=== PATIENT | male | born 1980 | race Caucasian/White ===

== ENCOUNTER 2016-09-05 11:56 | Emergency (ER) | payer MEDICAID, OTHER ==
[~2016-09-05] VITALS: Ht 175.3 cm; Wt 80.0 kg
[~2016-09-05 11:56] MED LIST: ARIP5TAB9 PO; CITA20TA9 PO
[2016-09-05 12:50] VITALS: BP 129/77
[2016-09-05] MEDS ORDERED: DEXAMETHASONE SOD PHOS 4 MG/ML 5 ML VIAL IM ONE (13:00)
== END 2016-09-05 13:18 | disposition home or self-care (01) ==
LOC: EMS 11:58
DX: J02.9 Acute pharyngitis, unspecified (principal); F17.210 Nicotine dependence, cigarettes, uncomplicated
CPT/HCPCS: 96372; 99283; J1100